=== PATIENT | female | born 1985 | race Caucasian/White ===

== ENCOUNTER 2020-01-22 12:56 | Emergency (ER) | payer OTHER ==
--- OUTSIDE RECORDS SUMMARY | 2020-01-22 12:58 | XMS REPORT | Continuity of Care Document ---
:[address] [facility] t Address [address] [place] [address] Dr. Oro [address] [place] [id number] Care Team Providers Name Role Phone Unavailable Unavailable Unavailable Problems This patient has no known problems. Allergies, Adverse Reactions, Alerts This patient has no known allergies or adverse reactions. Medications This patient has no known medications. Procedures This patient has no known procedures. Results This patient has no known results.
[2020-01-22] MEDS ORDERED: NA CHLORIDE 0.9% 1,000 ML ONE (14:09)
[2020-01-22] MEDS ORDERED: KETOROLAC 30 MG/ML INJ ONE (14:09)
[2020-01-22] MEDS ORDERED: CIPROFLOXACIN HCL 500 MG TAB ONE (14:09)
[2020-01-22] MEDS ORDERED: CEFTRIAXONE/SWI 1gm 1 GM/10 ML SYR ONE (14:09)
[2020-01-22 14:37] LABS: Absolute Lymphocytes (CBC) 2.2 K/uL (0.7-4.9); Basophils % 0.7 % (0-1.3); Hematocrit 35.2 % (36.0-45.0); Lymphocytes % 16.3 % (15.3-44.8); MPV 9.8 fL (7.6-11.3); RBC Red Blood Cell Count 3.82 M/uL (3.86-4.86)
--- NOTE | 2020-01-22 14:37 | RAD REPORT ---
EXAM DESCRIPTION: CT - Stone Protocol - 01/22/2020 2:13 pm CLINICAL HISTORY: Abdominal pain. COMPARISON: None. TECHNIQUE: Computed axial tomography of the abdomen pelvis was obtained without oral or IV contrast. Lack of IV and oral contrast limits evaluation of solid organs, bowel, and vessels. Coronal reformat myrtle images were obtained and reviewed. All CT scans are performed using dose optimization technique as appropriate and may include automated exposure control or mA/KV adjustment according to patient size. FINDINGS: A renal calculus is not seen. An ureteral calculus is not noted. A bladder calculus is not present. The liver, spleen, pancreas and adrenals appear grossly normal There is no evidence of diverticulitis. Mild gastric distention IMPRESSION: Negative for a genitourinary calculus Mild gastric distention
--- NOTE | 2020-01-22 14:39 | ER ---
Nurse's Notes [facility] Caren Name: Lila Angulo Age: 34 yrs Sex: Female : 1985 Arrival Date: 01/22/2020 Time: 12:59 Bed 8 Private MD: Diagnosis: Urinary tract infection, site not specified;Acute tubulo-interstitial nephritis Presentation: 01/21 13:09 Chief complaint: Patient states: pain, burning with urination and right kidney pain iw since Friday. Coronavirus screen: At this time, the client does not indicate any symptoms associated with coronavirus-19. Ebola Screen: Patient negative for fever greater than or equal to 101.5 degrees Fahrenheit, and additional compatible Ebola Virus Disease symptoms Patient denies exposure to infectious person. Patient denies travel to an Ebola-affected area in the 21 days before illness onset. No symptoms or risks identified at this time. Initial Sepsis Screen: Does the patient meet any 2 criteria? Does the patient have a suspected source of infection?. Risk Assessment: Do you want to hurt yourself or someone else? Patient reports no desire to harm self or others. 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 - Social history:: Smoking status: Patient reports the use of cigarette tobacco products, smokes one-half pack cigarettes per day. - Family history:: not pertinent. Screenin:30 Abuse screen: Denies threats or abuse. Denies injuries from another. Nutritional jl7 screening: No deficits noted. Tuberculosis screening: No symptoms or risk factors identified. Fall Risk IV access (20 points). Total Vincent Fall Scale indicates No Risk (0-24 pts). Assessment: 13:30 General: Appears in no apparent distress. uncomfortable, Behavior is calm, cooperative, jl7 appropriate for age. Pain: Complains of pain in left mid back and left low back Pain currently is 9 out of 10 on a pain scale. Neuro: Level of Consciousness is awake, alert, obeys commands, Oriented to person, place, time, situation, Appropriate for age. Cardiovascular: Patient's skin is warm and dry. Respiratory: Airway is patent Respiratory effort is even, unlabored, Respiratory pattern is regular, symmetrical. : Reports burning with urination, pain with urination. Derm: Skin is pink, warm \T\ dry. 14:30 Reassessment: Patient appears in no apparent distress at this time. Patient and/or jl7 family updated on plan of care and expected duration. Pain level reassessed. Patient is alert, oriented x 3, equal unlabored respirations, skin warm/dry/pink. Patient states feeling better. 14:57 Reassessment: pt will be discharged once fluids are done infusing. jl7 Vital Signs: 13:09 Weight 63.5 kg; Height 5 ft. 3 in. (160.02 cm); Pain 9/10; iw 13:30 BP 116 / 76; Pulse 90; Resp 15; Pulse Ox 100% ; jl7 14:30 BP 113 / 74; Pulse 90; Resp 15; Pulse Ox 100% ; jl7 15:20 BP 114 / 79; Pulse 89; Resp 15; Pulse Ox 100% ; jl7 13:09 Body Mass Index 24.80 (63.50 kg, 160.02 cm) iw ED Course: 12:59 Patient arrived in ED. as 13:01 Wilson Longoria MD is Attending Physician. [facility] 13:07 Danis Selby, SARANYA is Primary Nurse. jl7 13:10 Triage completed. iw 13:11 Arm band placed on. iw 13:30 Patient has correct armband on for positive identification. Bed in low position. Call jl7 light in reach. Side rails up X 1. Pulse ox on. NIBP on. Warm blanket given. 13:30 Initial lab(s) drawn, by nc, sent to lab. Urine collected: clean catch specimen, jl7 cloudy. Inserted saline lock: 20 gauge in left antecubital area, using aseptic technique. Blood collected. 13:32 Radiology exam delayed due to test not completed at this time. bq 14:12 CT completed. Patient tolerated procedure well. Patient moved back from CT. bq 14:13 CT Stone Protocol In Process Unspecified. EDMS 15:20 No provider procedures requiring assistance completed. IV discontinued, intact, jl7 bleeding controlled, No redness/swelling at site. Pressure dressing applied. Administered Medications: 14:30 Drug: NS 0.9% 1000 ml Route: IV; Rate: 1 bolus; Site: left antecubital; jl7 15:20 Follow up: Response: No adverse reaction; IV Status: Completed infusion; IV Intake: jl7 800ml 14:31 Drug: Rocephin 1 grams Route: IV; Rate: per protocol; Site: left antecubital; jl7 14:35 Follow up: Response: No adverse reaction; IV Status: Completed infusion jl7 14:35 Drug: TORadol 30 mg Route: IVP; Site: left antecubital; jl7 15:00 Follow up: Response: No adverse reaction; Pain is decreased jl7 14:54 Drug: Cipro 500 mg Route: PO; jl7 15:20 Follow up: Response: No adverse reaction jl7 Intake: 15:20 IV: 800ml; Total: 800ml. jl7 Outcome: 14:39 Discharge ordered by MD. mas 15:20 Discharged to Rehab Facility jl7 15:20 Condition: stable 15:20 Discharge instructions given to patient, Instructed on discharge instructions, follow up and referral plans. medication usage, Demonstrated understanding of instructions, follow-up care, medications, Prescriptions given X 2. 15:21 Patient left the ED. jl7 Signatures: Dispatcher [employer] EDWilson Byrd MD MD cha Quilty, Betty bq Martinez, Amelia as Williams, Irene, Danis Márquez RN, RN RN jl7 Corrections: (The following items were deleted from the chart) 13:12 13:11 PSHx: None; nestor
--- NOTE | 2020-01-22 14:40 | EDPHYS ---
Physician Documentation [facility] Name: Lila Angulo Age: 34 yrs Sex: Female : 1985 Arrival Date: 01/22/2020 Time: 12:59 Bed 8 Private MD: ED Physician Wilson Longoria HPI: 01/21 13:25 This 34 yrs old Female presents to ER via Ambulatory with complaints of tg Urinary Problem. 13:25 The patient complains of pain in the left low back and left mid back. The pain does not tg radiate. Onset: The symptoms/episode began/occurred 2 day(s) ago. Modifying factors: The symptoms are alleviated by nothing. the symptoms are aggravated by nothing. The patient presents with flank pain, on the left. Onset: The symptoms/episode began/occurred 2 day(s) ago. Modifying factors: The symptoms are alleviated by remaining still, the symptoms are aggravated by movement, walking. Associated signs and symptoms: The patient has no apparent associated signs or symptoms. Severity of symptoms: At their worst the symptoms were mild, in the emergency department the symptoms are unchanged. The patient presents with pain and decreased range of motion, and tenderness. 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 - Social history:: Smoking status: Patient reports the use of cigarette tobacco products, smokes one-half pack cigarettes per day. - Family history:: not pertinent. ROS: 13:25 Constitutional: Negative for fever, chills, and weight loss, Eyes: Negative for injury, tg pain, redness, and discharge, ENT: Negative for injury, pain, and discharge, Neck: Negative for injury, pain, and swelling, Cardiovascular: Negative for chest pain, palpitations, and edema, Respiratory: Negative for shortness of breath, cough, wheezing, and pleuritic chest pain, Abdomen/GI: Negative for abdominal pain, nausea, vomiting, diarrhea, and constipation, : Negative for injury, bleeding, discharge, and swelling, MS/Extremity: Negative for injury and deformity, Skin: Negative for injury, rash, and discoloration, Neuro: Negative for headache, weakness, numbness, tingling, and seizure, Psych: Negative for depression, anxiety, suicide ideation, homicidal ideation, and hallucinations, Allergy/Immunology: Negative for hives, rash, and allergies, Endocrine: Negative for neck swelling, polydipsia, polyuria, polyphagia, and marked weight changes, Hematologic/Lymphatic: Negative for swollen nodes, abnormal bleeding, and unusual bruising. 13:25 Back: Positive for flank pain, on the left. Exam: 13:25 Constitutional: This is a well developed, well nourished patient who is awake, alert, tg and in no acute distress. Head/Face: Normocephalic, atraumatic. Eyes: Pupils equal round and reactive to light, extra-ocular motions intact. Lids and lashes normal. Conjunctiva and sclera are non-icteric and not injected. Cornea within normal limits. Periorbital areas with no swelling, redness, or edema. ENT: Nares patent. No nasal discharge, no septal abnormalities noted. Tympanic membranes are normal and external auditory canals are clear. Oropharynx with no redness, swelling, or masses, exudates, or evidence of obstruction, uvula midline. Mucous membranes moist. Neck: Trachea midline, no thyromegaly or masses palpated, and no cervical lymphadenopathy. Supple, full range of motion without nuchal rigidity, or vertebral point tenderness. No Meningismus. Chest/axilla: Normal chest wall appearance and motion. Nontender with no deformity. No lesions are appreciated. Cardiovascular: Regular rate and rhythm with a normal S1 and S2. No gallops, murmurs, or rubs. Normal PMI, no JVD. No pulse deficits. Respiratory: Lungs have equal breath sounds bilaterally, clear to auscultation and percussion. No rales, rhonchi or wheezes noted. No increased work of breathing, no retractions or nasal flaring. Abdomen/GI: Soft, non-tender, with normal bowel sounds. No distension or tympany. No guarding or rebound. No evidence of tenderness throughout. Skin: Warm, dry with normal turgor. Normal color with no rashes, no lesions, and no evidence of cellulitis. MS/ Extremity: Pulses equal, no cyanosis. Neurovascular intact. Full, normal range of motion. Neuro: Awake and alert, GCS 15, oriented to person, place, time, and situation. Cranial nerves II-XII grossly intact. Motor strength 5/5 in all extremities. Sensory grossly intact. Cerebellar exam normal. Normal gait. Psych: Awake, alert, with orientation to person, place and time. Behavior, mood, and affect are within normal limits. 13:25 Back: pain, that is mild, ROM is normal, normal spinal alignment noted, CVA tenderness, that is mild, is noted on the left. Vital Signs: 13:09 Weight 63.5 kg; Height 5 ft. 3 in. (160.02 cm); Pain 9/10; iw 13:30 BP 116 / 76; Pulse 90; Resp 15; Pulse Ox 100% ; jl7 14:30 BP 113 / 74; Pulse 90; Resp 15; Pulse Ox 100% ; jl7 15:20 BP 114 / 79; Pulse 89; Resp 15; Pulse Ox 100% ; jl7 13:09 Body Mass Index 24.80 (63.50 kg, 160.02 cm) iw MDM: 13:06 Patient medically screened. [facility] 13:28 Data reviewed: vital signs, nurses notes, lab test result(s), radiologic studies, CT tg scan. 13:28 Differential diagnosis: nephrolithiasis, pyelonephritis, UTI, kidney stone, nonspecific tg abdominal pain, urinary tract infection. 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 rate is 65 beats/min, rhythm is regular, Pulse oximetry: on room air is 99 %. Counseling: I had a detailed discussion with the patient and/or guardian regarding: the historical points, exam findings, and any diagnostic results supporting the discharge/admit diagnosis, lab results, the need for outpatient follow up, for definitive care, a family practitioner. 01/21 13: Order name: Urine Dipstick--Ancillary (enter results) 01/21 13: Order name: Urine --Ancillary (enter results) 01/21 13: Order name: CBC with Diff [facility] 01/21 13:25 Order name: Comprehensive Metabolic Panel [facility] 01/21 13:25 Order name: CT Stone Protocol; Complete Time: 14:39 tg Administered Medications: 14:30 Drug: NS 0.9% 1000 ml Route: IV; Rate: 1 bolus; Site: left antecubital; jl7 15:20 Follow up: Response: No adverse reaction; IV Status: Completed infusion; IV Intake: jl7 800ml 14:31 Drug: Rocephin 1 grams Route: IV; Rate: per protocol; Site: left antecubital; 7 14:35 Follow up: Response: No adverse reaction; IV Status: Completed infusion jl7 14:35 Drug: TORadol 30 mg Route: IVP; Site: left antecubital; 7 15:00 Follow up: Response: No adverse reaction; Pain is decreased jl7 14:54 Drug: Cipro 500 mg Route: PO; jl7 15:20 Follow up: Response: No adverse reaction [facility] Disposition: 01/22/20 14:39 Discharged to Home. Impression: Urinary tract infection, site not specified, Acute tubulo-interstitial nephritis. - Condition is Stable. - Discharge Instructions: Dysuria, Pyelonephritis, Adult, Pyelonephritis, Adult, [id number], Urinary Tract Infection, Adult, Urinary Tract Infection, Adult, [id number]. - Prescriptions for Pyridium 200 mg Oral Tablet - take 1 tablet by ORAL route every 8 hours for 3 days; 9 tablet. Cipro 500 mg Oral Tablet - take 1 tablet by ORAL route every 12 hours for 7 days; 14 tablet. - Medication Reconciliation Form, Thank You Letter, Antibiotic Education, Prescription Opioid Use form. - Follow up: Private Physician; When: 2 - 3 days; Reason: Recheck today's complaints, Continuance of care, Re-evaluation by your physician. - Problem is new. - Symptoms have improved. Signatures: Dispatcher [employer] EDID Wilson Longoria MD MD cha Williams, Irene RN RN Danis Selby RN RN jl7 Corrections: (The following items were deleted from the chart) 13:12 13:11 PSHx: None; [facility] 15:21 14:39 01/22/2020 14:39 Discharged to Home. Impression: Urinary tract infection, site jl7 not specified; Acute tubulo-interstitial nephritis. Condition is Stable. Discharge Instructions: Dysuria, Pyelonephritis, Adult, Pyelonephritis, Adult, [id number], Urinary Tract Infection, Adult, Urinary Tract Infection, Adult, [id number]. Prescriptions for Pyridium 200 mg Oral Tablet - take 1 tablet by ORAL route every 8 hours for 3 days; 9 tablet, Cipro 500 mg Oral Tablet - take 1 tablet by ORAL route every 12 hours for 7 days; 14 tablet. and Forms are Medication Reconciliation Form, Thank You Letter, Antibiotic Education, Prescription Opioid Use. Follow up: Private Physician; When: 2 - 3 days; Reason: Recheck today's complaints, Continuance of care, Re-evaluation by your physician. Problem is new. Symptoms have improved. tg
[2020-01-22 14:54] LABS: ALT/SGPT 17 U/L (12-78); AST/SGOT 10 U/L (15-37); Albumin 3.6 g/dL (3.4-5.0); Alkaline Phosphatase 49 U/L (45-117); BUN Blood Urea Nitrogen 8 mg/dL (7-18); Bicarbonate 27 mmol/L (21-32); Bilirubin Total 0.1 mg/dL (0.2-1.0); Glucose Level 120 mg/dL (74-106); Potassium 3.5 mmol/L (3.5-5.1); Sodium Level 141 mmol/L (136-145)
[2020-01-22 15:15] LABS: Urine Blood 2+ (NEG); Urine Glucose NEGATIVE (NEG); Urine Protein 3+ (NEG)
[2020-01-22 15:29] VITALS: O2SAT 100
[2020-01-22 15:32] VITALS: BP 114/79
== END 2020-01-22 15:21 | disposition home or self-care (01) ==
LOC: ER 12:56
DX: N39.0 Urinary tract infection, site not specified (principal); N10 Acute pyelonephritis; F17.210 Nicotine dependence, cigarettes, uncomplicated; Z88.0 Allergy status to penicillin
CPT/HCPCS: 96361; 85025; 36415; 81025; 81003; 80053; 76377; 74176; 96375; 96374; 99284; J0696; J7030

== ENCOUNTER 2023-07-31 16:52 | Emergency (ER) | payer OTHER ==
[2023-07-31 18:01] LABS: Specific Gravity 1.023 (1.005-1.030)
[2023-07-31 18:04] LABS: Specific Gravity 1.023 (1.005-1.030); Sqamous Epithelial <5 /HPF (None Seen); Urine Bacteria None Seen /HPF (<20); Urine Bilirubin NEGATIVE (Negative); Urine Blood Negative (Negative); Urine Clarity Extremely Turbid (Clear); Urine Color Light-Yellow (Yellow); Urine Culture Reflex Order NOT NEEDED; Urine Glucose NEGATIVE (Negative); Urine Ketones NEGATIVE (Negative); Urine Microscopic Reflex YN ORDER UMIC; Urine Mucus Slight /HPF (None Seen); Urine Nitrite NEGATIVE (Negative); Urine Protein TRACE (Negative); Urine RBC <5 /HPF (None Seen); Urine Urobilinogen Normal (Normal); Urine WBC <5 /HPF (<5); Urine pH 7.5 (5.0-7.0)
[2023-07-31] MEDS ORDERED: ONDANSETRON 4 MG/2 ML VIAL ONE (18:24)
[2023-07-31] MEDS ORDERED: NA CHLORIDE 0.9% 1,000 ML ONE (18:25)
[2023-07-31 18:36] LABS: Absolute Basophils 0.1 K/uL (0-0.5); Absolute Eosinophils 0.2 K/uL (0-0.5); Absolute Lymphocytes (CBC) 3.3 K/uL (0.7-4.9); Absolute Monocytes 0.6 K/uL (0.1-1.3); Absolute Neutrophil 6.2 K/uL (1.8-8.0); Basophils % 1.1 % (0-1.3); Eosinophils % 2.1 % (0-4.4); Hematocrit 34.8 % (36.0-45.0); Hemoglobin 12.2 g/dL (12.0-15.0); Lymphocytes % 31.7 % (15.3-44.8); MCH 31.6 pg (27.0-35.0); MCHC 34.9 g/dL (32.0-36.0); MCV 90.4 fL (80-100); MPV 8.7 fL (7.6-11.3); Monocytes % 5.3 % (3.3-12.3); Neutrophils % 59.8 % (41.7-73.7); Nucleated Red Blood Cells % 0.1 % (0-0); Platelets 378 thou/uL (152-406); RBC Red Blood Cell Count 3.85 M/uL (3.86-4.86); Red Cell Distribution Width 13.9 % (12.1-15.2)
[2023-07-31] MEDS ORDERED: KETOROLAC 30 MG/ML INJ ONE (18:43)
[2023-07-31 18:44] LABS: Albumin 3.7 g/dL (3.4-5.0); Anion Gap 7.8 mEq/L (5.0-15.0); Bilirubin Total 0.2 mg/dL (0.2-1.0); Potassium 3.8 mEq/L (3.5-5.1); Protein, Total 7.4 g/dL (6.4-8.2)
[2023-07-31 18:45] LABS: Globulin 3.7 g/dL (2.3-3.5)
--- NOTE | 2023-07-31 21:00 | RAD REPORT ---
EXAM DESCRIPTION: CT - Abdomen Pelvis W Contrast - 07/31/2023 7:49 pm CLINICAL HISTORY: ABD PAIN COMPARISON: Stone Protocol dated 01/22/2020 TECHNIQUE: Thin cut axial CT imaging of the abdomen and pelvis was performed following intravenous a dministration of 100 mL Isovue 300. Multiplanar reformats were generated and reviewed. All CT scans are performed using dose optimization technique as appropriate and may include automated exposure control or mA/KV adjustment according to patient size. FINDINGS: No suspicious findings in the lung bases. The liver, spleen, adrenal glands, and pancreas show no suspicious findings. Gallbladder and biliary tree are also without suspicious finding. Symmetric renal function is seen with no hydronephrosis or suspicious renal mass. No dilated bowel loops or bowel wall thickening. No free air, free fluid or inflammatory stranding. N o hernia, mass or bulky lymphadenopathy. The urinary bladder is without significant finding. No suspicious bony findings. IMPRESSION: No acute intra-abdominal process.
--- NOTE | 2023-07-31 21:16 | ER ---
Nurse's Notes [facility] Caren Name: Lila Angulo Age: 37 yrs Sex: Female : 1985 Arrival Date: 07/31/2023 Time: 16:52 Bed 4 Private MD: Diagnosis: Viral gastroenteritis Presentation: 07/30 17:38 Chief complaint: Patient states: started throwing up yesterday morning and again today, ko1 every time i eat, i throw up. Coronavirus screen: At this time, the client does not indicate any symptoms associated with coronavirus-19. Ebola Screen: No symptoms or risks identified at this time. Initial Sepsis Screen: Does the patient meet any 2 criteria? No. Patient's initial sepsis screen is negative. Does the patient have a suspected source of infection? No. Patient's initial sepsis screen is negative. Risk Assessment: Do you want to hurt yourself or someone else? Patient reports no desire to harm self or others. Onset of symptoms was July 31, 2023. 17:38 Method Of Arrival: Ambulatory ko1 17:38 Acuity: CRISTOPHER 3 ko1 Triage Assessment: 17:41 General: Appears in no apparent distress. Behavior is calm, cooperative, appropriate ko1 for age. Pain: Complains of pain in anterior aspect of right lateral abdomen. GI: Reports lower abdominal pain, nausea, vomiting. Historical: - Allergies: 17:41 PENICILLINS; ko1 17:41 CEPHALOSPORINS; ko1 - PSHx: 17:41 Appendectomy; Ligation of fallopian tube; ko1 - Immunization history:: Adult Immunizations up to date. - Social history:: Smoking status: Patient denies any tobacco usage or history of. Screenin:29 [facility] ED Fall Risk Assessment (Adult) History of falling in the last 3 months, ha1 including since admission No falls in past 3 months (0 pts) Confusion or Disorientation No (0 pts) Intoxicated or Sedated No (0 pts) Impaired Gait No (0 pts) Mobility Assist Device Used No (0 pt) Altered Elimination No (0 pt) Score/Fall Risk Level 0 - 2 = Low Risk Oriented to surroundings, Maintained a safe environment, Educated pt \T\ family on fall prevention, incl call for assistance when getting out of bed. Abuse screen: Denies threats or abuse. Denies injuries from another. Nutritional screening: No deficits noted. Tuberculosis screening: No symptoms or risk factors identified. Assessment: 18:53 General: Appears in no apparent distress. comfortable, Behavior is calm, cooperative, ph appropriate for age. Pain: Complains of pain in right upper quadrant. Neuro: Level of Consciousness is awake, alert, obeys commands, Oriented to person, place, time, situation. GI: Abdomen is non-distended, Reports upper abdominal pain, nausea, vomiting. Derm: Skin is healthy with good turgor, Skin is pink, warm \T\ dry. Musculoskeletal: Circulation, motion, and sensation intact. Range of motion: intact in all extremities. 19:26 General: Appears comfortable, Behavior is calm, cooperative. Pain: Complains of pain in ha1 abdomen Pain does not radiate. Pain currently is 3 out of 10 on a pain scale. Quality of pain is described as crampy. Neuro: Level of Consciousness is awake, alert, obeys commands, Oriented to person, place, time, situation. Cardiovascular: Capillary refill Patient's skin is warm and dry. Respiratory: Airway is patent Respiratory effort is even, unlabored, Respiratory pattern is regular, symmetrical. GI: Abdomen is round non-distended, obese, Reports upper abdominal pain. Derm: Skin is pink, warm \T\ dry. Musculoskeletal: Circulation, motion, and sensation intact. Range of motion: intact in all extremities. 20:01 Reassessment: Patient and/or family updated on plan of care and expected duration. Pain rv level reassessed. Patient is alert, oriented x 3, equal unlabored respirations, skin warm/dry/pink. Pain: Denies pain. Vital Signs: 17:38 BP 122 / 74; Pulse 85; Resp 15; Temp 97.6; Pulse Ox 99% ; ko1 18:54 BP 112 / 67; Pulse 76; Resp 18; Pulse Ox 98% on R/A; ph 19:28 BP 105 / 62; Pulse 78; Resp 17 S; Pulse Ox 98% on R/A; ha1 21:06 BP 102 / 62; Pulse 87; Resp 17; Temp 98; Pulse Ox 100% on R/A; rv Raf Coma Score: 20:01 Eye Response: spontaneous(4). Motor Response: obeys commands(6). Verbal Response: rv oriented(5). Total: 15. ED Course: 16:55 Patient arrived in ED. rg4 17:00 Erinn Spivey PA-C [facility]. sb4 17:00 Wilson Longoria MD is Attending Physician. sb4 17:41 Triage completed. ko1 17:41 Arm band placed on right wrist. Patient placed in waiting room, Patient notified of ko1 wait time. 17:50 Test, Urine Sent. ko1 17:50 Urinalysis w/ reflexes Sent. ko1 17:50 Urine collected: clean catch specimen, cloudy. ko1 18:16 Alexus Garcia, RN is Primary Nurse. ph 18:54 Patient has correct armband on for positive identification. Bed in low position. Call ph light in reach. Side rails up X 1. Pulse ox on. NIBP on. Door closed. Noise minimized. Warm blanket given. 19:48 CT Abd/Pelvis - IV Contrast Only In Process Unspecified. EDMS 21:20 No provider procedures requiring assistance completed. IV discontinued, intact, rv bleeding controlled, No redness/swelling at site. Pressure dressing applied, g22 right AC. Administered Medications: 18:52 Drug: NS 0.9% IV 1000 ml IV at 1 bolus Per protocol; 1000 mL bolus Route: IV; Rate: 1 ph bolus; Site: right antecubital; 21:06 Follow up: IV Status: Completed infusion; IV Intake: 1000ml rv 18:52 Drug: Ondansetron IVP 4 mg IVP once; over 2 minutes Route: IVP; Site: right antecubital;ph 21:06 Follow up: Response: No adverse reaction; Marked relief of symptoms rv 18:52 Drug: Ketorolac IVP 30 mg IVP once Route: IVP; Site: right antecubital; ph 21:06 Follow up: Response: No adverse reaction; Marked relief of symptoms rv Medication: 19:29 VIS not applicable for this client. ha1 Intake: 21:06 IV: 1000ml; Total: 1000ml. rv Outcome: 21:16 Discharge ordered by . sb4 21:21 Discharged to home ambulatory, rv 21:21 Condition: good 21:21 Discharge instructions given to patient, Instructed on discharge instructions, follow up and referral plans. medication usage, Demonstrated understanding of instructions, follow-up care, medications, Prescriptions given X 1, 21:21 Patient left the ED. rv Signatures: Dispatcher [employer] Alexus Lou RN RN paco Danielle, Katey rg4 Baltazar Barrios, RN RN Janet Alvarado, RN RN ha1 Stefany Bishop RN RN Erinn Jack, LEAH PAFrancisca sb4
--- NOTE | 2023-07-31 21:17 | EDPHYS ---
Physician Documentation [facility] Name: Lila Angulo Age: 37 yrs Sex: Female : 1985 Arrival Date: 07/31/2023 Time: 16:52 Bed 4 Private MD: ED Physician Wilson Longoria HPI: 07/30 17:42 This 37 yrs old Female presents to ER via Ambulatory with complaints of Vomiting, sb4 abdominal pain. 17:42 Patient reports vomiting x 2 days now. She denies any sick contacts. Denies any fever sb4 or diarrhea. Also endorses some abdominal cramping in her right upper quadrant region. States that she had some issues with her gallbladder when she was but has not had any issues since. Historical: - Allergies: 17:41 PENICILLINS; ko1 17:41 CEPHALOSPORINS; ko1 - PSHx: 17:41 Appendectomy; Ligation of fallopian tube; ko1 - Immunization history:: Adult Immunizations up to date. - Social history:: Smoking status: Patient denies any tobacco usage or history of. ROS: 17:42 Constitutional: Negative for fever, chills, and weight loss, sb4 17:42 Abdomen/GI: Positive for abdominal pain, nausea and vomiting, 17:42 All other systems are negative, Exam: 17:42 Constitutional: This is a well developed, well nourished patient who is awake, alert, sb4 and in no acute distress. Head/Face: Normocephalic, atraumatic. Eyes: Extra-ocular motions intact. Periorbital areas with no swelling, redness, or edema. ENT: Mucous membranes moist. Cardiovascular: Regular rate and rhythm with a normal S1 and S2. Respiratory: Lungs have equal breath sounds bilaterally, clear to auscultation and percussion. No rales, rhonchi or wheezes noted. No increased work of breathing, no retractions or nasal flaring. Abdomen/GI: Soft, non-tender, no distension. Skin: Warm, dry with normal turgor. Normal color with no rashes, no lesions, and no evidence of cellulitis. MS/ Extremity: Pulses equal, no cyanosis. Neurovascular intact. Full, normal range of motion. Neuro: Awake and alert, GCS 15, oriented to person, place, time, and situation. Motor strength 5/5 in all extremities. Sensory grossly intact. Vital Signs: 17:38 BP 122 / 74; Pulse 85; Resp 15; Temp 97.6; Pulse Ox 99% ; ko1 18:54 BP 112 / 67; Pulse 76; Resp 18; Pulse Ox 98% on R/A; ph 19:28 BP 105 / 62; Pulse 78; Resp 17 S; Pulse Ox 98% on R/A; ha1 21:06 BP 102 / 62; Pulse 87; Resp 17; Temp 98; Pulse Ox 100% on R/A; rv Raf Coma Score: 20:01 Eye Response: spontaneous(4). Motor Response: obeys commands(6). Verbal Response: rv oriented(5). Total: 15. MDM: 17:44 Patient medically screened. sb4 17:47 Differential diagnosis: cholecystitis, gastroenteritis, cholelithiasis. sb4 21:15 Data reviewed: vital signs, nurses notes, lab test result(s), radiologic studies, and sb4 as a result, I will discharge patient. Counseling: I had a detailed discussion with the patient and/or guardian regarding the historical points, exam findings, and any diagnostic results supporting the discharge/admit diagnosis, lab results, radiology results, to return to the emergency department if symptoms worsen or persist or if there are any questions or concerns that arise at home. 07/30 17:42 Order name: CBC with Diff; Complete Time: 18:40 sb4 07/30 17:42 Order name: CMP; Complete Time: 18:46 sb4 07/30 17:42 Order name: Lipase; Complete Time: 18:46 sb4 07/30 17:42 Order name: Test, Urine sb4 07/30 17:42 Order name: Urinalysis w/ reflexes; Complete Time: 18:06 sb4 07/30 19:18 Order name: CT Abd/Pelvis - IV Contrast Only; Complete Time: 21:03 sb4 07/30 17:42 Order name: IV Saline Lock; Complete Time: 18:40 sb4 07/30 17:42 Order name: Labs collected and sent; Complete Time: 18:40 sb4 07/30 21:04 Order name: PO challenge; Complete Time: 21:16 sb4 Administered Medications: 18:52 Drug: NS 0.9% IV 1000 ml IV at 1 bolus Per protocol; 1000 mL bolus Route: IV; Rate: 1 ph bolus; Site: right antecubital; 21:06 Follow up: IV Status: Completed infusion; IV Intake: 1000ml rv 18:52 Drug: Ondansetron IVP 4 mg IVP once; over 2 minutes Route: IVP; Site: right antecubital;ph 21:06 Follow up: Response: No adverse reaction; Marked relief of symptoms rv 18:52 Drug: Ketorolac IVP 30 mg IVP once Route: IVP; Site: right antecubital; ph 21:06 Follow up: Response: No adverse reaction; Marked relief of symptoms rv Disposition Summary: 07/31/23 21:16 Discharge Ordered Notes: Location: Home sb4 Problem: new sb4 Symptoms: have improved sb4 Condition: Stable sb4 Diagnosis - Viral gastroenteritis sb4 Followup: sb4 - With: Emergency Department - When: As needed - Reason: Trouble breathing, Worsening of condition Discharge Instructions: - Discharge Summary Sheet sb4 - Viral Gastroenteritis, Adult, [id number] sb4 Forms: - Thank You Letter sb4 - Patient Portal Instructions sb4 - Leadership Thank You Letter sb4 Prescriptions: - Zofran 4 mg Oral Tablet - take 1 tablet ORAL route every 12 hours As needed; 20 tablet; Refills: 0, sb4 Product Selection Permitted Signatures: Dispatcher [employer] Alexus Lou RN RN Stefany Mattson RN RN Erinn Jack, PAFrancisca PAFrancisca sb4 Baltazar Barrios RN rv
[2023-07-31 21:35] VITALS: BP 102/62; TEMP 98; O2SAT 100
== END 2023-07-31 21:21 | disposition home or self-care (01) ==
LOC: ER 16:52
DX: A08.4 Viral intestinal infection, unspecified (principal); Z88.0 Allergy status to penicillin; Z88.3 Allergy status to other anti-infective agents
CPT/HCPCS: 96361; 85025; 81001; 36415; 81025; 83690; 80053; 74177; 96375; 96374; 99284; Q9967; J2405; J7030